=== PATIENT | male | born 1990 | race Caucasian/White ===

== ENCOUNTER 2017-01-05 09:49 | Emergency (ER) | payer MEDICAID ==
[2017-01-05 10:01] VITALS: BP 130/84
--- NOTE | 2017-01-05 10:02 | ED Physician Documentation ---
History of Present Illness - Stated complaint Stated Complaint: R TOOTH PX - Chief complaint Chief Complaint: Heent - Additonal information Additional information: pt with long standing dental decay has never seen a dentist his whole life has no medical or dental insurance to ER with inc swelling to R lower jaw line hurt last night better today Review of Systems Constitutional: denies: Fever Throat: reports: Dental pain / toothache PD PAST MEDICAL HISTORY - Present Medications Home Medications: Ambulatory Orders Medication Instructions Recorded Confirmed Amoxicillin 500 mg PO Q8H #20 capsule 01/05/17 - Allergies Allergies/Adverse Reactions: Allergies Allergy/AdvReac Type Severity Reaction Status Date / Time No Known Drug Allergies Allergy Verified 01/05/17 09:59 PD ED PE NORMAL - Vitals Vital signs reviewed: Yes - HEENT HEENT: No: Dentition benign (extensive decay jo molars, swelling along R posterior mandible, no intraoral abscess visible to drain, no ludwigs, ant adenopathy but no neck swelling) - Cardiac Cardiac: RRR, No murmur - Respiratory Respiratory: No respiratory distress Results - Vitals Vitals: Vital Signs - 24 hr 01/05/17 09:56 Temperature 36.4 C L Heart Rate 66 Respiratory 17 Rate Blood Pressure 130/84 H O2 Saturation 96 Oxygen O2 Source Room air Departure - Departure Disposition: 01 Home, Self Care Clinical Impression: Dental abscess Condition: Good Instructions: ED Abscess Dental Prescriptions: Amoxicillin 500 mg PO Q8H #20 capsule Comments: Take the antibiotics as prescribed Motrin and tylenol as needed for the pain Ask the registration desk for an application for state medical insurance [facility] to schedule a dentist appointment The antibiotics will ted be a temporary otto - the underlying decay still needs to be addressed by a dentist As we discussed, return if worse. Especially for swelling under your chin or down you neck And please get your blood pressure rechecked - it was high today
[2017-01-05] MEDS: AMOXICILLIN 250 MG CAPSULE PO STA (10:12)
[2017-01-05] MEDS: DEXAMETHASONE 10 MG/ML VIAL PO STA (10:12)
[2017-01-05] MEDS ORDERED: AMOXICILLIN 250 MG CAPSULE PO ONE (10:14)
[2017-01-05] MEDS ORDERED: DEXAMETHASONE 10 MG/ML VIAL ONE (10:15)
[2017-01-05] MEDS ORDERED: CHERRY SYRUP 10 ML UDC PO ONE (10:15)
== END 2017-01-05 10:21 | disposition home or self-care (01) ==
LOC: ED 09:49
DX: K04.7 Periapical abscess without sinus (principal); R03.0 Elevated blood-pressure reading, without diagnosis of hypertension
CPT/HCPCS: 99283

== ENCOUNTER 2017-03-05 23:02 | Outpatient (CLI) | payer OTHER, MEDICAID | END 2017-03-05 23:03 | disposition home or self-care (01) | LOC: LAB 23:02 | PROVIDERS: ATTEND Pathology Blood Banking & Transfusion Medicine | DX: Z01.89 Encounter for other specified special examinations (principal) | CPT/HCPCS: 36415 ==